=== PATIENT | male | born 1980 | race Caucasian/White ===

== ENCOUNTER 2017-03-25 16:30 | Emergency (ER) | payer BC ==
[~2017-03-25] VITALS: Ht 182.9 cm; Wt 99.2 kg
[2017-03-25] MEDS ORDERED: FAMOTIDINE 20 MG/2 ML IVP ONE (17:00)
[2017-03-25] MEDS ORDERED: SODIUM CHLORIDE FLUSH 10ML SYR IVF ONE (17:00)
[2017-03-25] MEDS ORDERED: SODIUM CHLORIDE 0.9% 1,000ML IVBOLUS ONE (17:00)
[2017-03-25] MEDS ORDERED: ONDANSETRON 2MG/ML, 2ML IVPush ONE (17:00)
[2017-03-25] MEDS ORDERED: MAALOX/HYOSCYAMINE/LIDOCAINE 45 ML BTL PO ONE (17:00)
[2017-03-25 17:16] LABS: HEMATOCRIT 49.9 % (39.2-51.8); HEMOGLOBIN 16.5 g/dL (13.7-18.0); WHITE BLOOD COUNT 10.6 x10^3/uL (3.4-10)
[2017-03-25] MEDS ORDERED: MAALOX/HYOSCYAMINE/LIDOCAINE 45 ML BTL ONE (17:26)
[2017-03-25] MEDS ORDERED: ONDANSETRON 2MG/ML, 2ML ONE (17:27)
[2017-03-25] MEDS ORDERED: FAMOTIDINE 20 MG/2 ML ONE (17:27)
[2017-03-25 17:29] LABS: ASPARTATE AMINO TRANSFERASE 38 U/L (15-37); BLOOD UREA NITROGEN 17 mg/dL (7-18)
[2017-03-25 20:05] VITALS: BP 117/74
== END 2017-03-25 20:07 | disposition home or self-care (01) ==
LOC: ED 20:01
DX: K52.9 Noninfective gastroenteritis and colitis, unspecified (principal)
CPT/HCPCS: 36415; 74020; 80053; 83690; 85025; 96361; 96374; 96375; 99285; J2405; J7030; S0028